=== PATIENT | male | born 1980 | race Caucasian/White ===

== ENCOUNTER 2018-06-19 11:02 | Emergency (ER) | payer BC ==
[2018-06-19] MEDS ORDERED: Lactated Ringers 1,000 ML IV ONE (11:30)
[2018-06-19] MEDS ORDERED: Ondansetron 4 MG/2 ML SDV IVPUSH ONE (11:30)
[2018-06-19] MEDS ORDERED: Sodium Chloride 0.9% 10 ML Syringe FLUSH PRN (11:30)
[2018-06-19] MEDS ORDERED: Famotidine 20 MG/2 ML SDV IVPUSH ONE (11:31)
--- NOTE | 2018-06-19 11:42 | EDM.PDOC ---
ED HPI GENERAL MEDICAL PROBLEM - General Chief Complaint: Abdominal Pain Stated Complaint: UPPER ABD PAIN AND VOMITING Time Seen by Provider: 06/19/18 11:20 Source of Information: Reports: Patient History Limitations: Reports: No Limitations - History of Present Illness INITIAL COMMENTS - FREE TEXT/NARRATIVE: 37 year old male presents for evaluation and treatment of abdominal pain, vomiting and diarrhea. Patient reports symptoms started gradually on Monday, about 3 days ago. Reports initially had a "gross" feeling in his stomach. Reports he has now developed nausea, vomiting and diarrhea. Reports anything he takes in he either vomits up or has diarrhea. He is reporting soreness to the Right upper abdomen with radiation into his back near his right shoulder blade. He reports his pain is a dull ache which he describes as feeling like he pulled a muscle. Reports over 10 episodes of diarrhea per day. States he has lost 13 pounds in the last few days. Reports he only had a small bite to eat this morning, last significant food intake was yesterday. Does not feel that he has much of an appetite and eating seems to worsen the pain. PCP is Dr. Smith. Only medication is lexapro. No previous abdominal surgeries. No ill contacts, questionable foods or recent travel. Upper Abdominal Pain Score (Numeric/FACES): 3 - Related Data Allergies Allergy/AdvReac Type Severity Reaction Status Date / Time No Known Allergies Allergy Verified 06/19/18 11:10 Home Meds: Home Meds Escitalopram [Lexapro] 10 mg PO DAILY 06/19/18 [History] Past Medical History - Past Health History Medical/Surgical History: Denies Medical/Surgical History Social & Family History - Tobacco Use Smoking Status *Q: Never Smoker ED ROS GENERAL - Review of Systems Review Of Systems: See Below Constitutional: Reports: Chills, Decreased Appetite, Weight Loss. Denies: Fever GI/Abdominal: Reports: Abdominal Pain (RUQ), Diarrhea, Nausea, Vomiting. Denies : Bloody Stool Musculoskeletal: Reports: Back Pain (right sided in between shoulder blad and spine) ED EXAM, GI/ABD - Physical Exam Exam: See Below Exam Limited By: No Limitations General Appearance: Alert, WD/WN, No Apparent Distress Throat/Mouth: Normal Inspection, Normal Voice, No Airway Compromise Respiratory/Chest: No Respiratory Distress, Lungs Clear, Normal Breath Sounds Cardiovascular: Normal Peripheral Pulses, Regular Rate, Rhythm, No Murmur GI/Abdominal Exam: Normal Bowel Sounds, Soft, Non-Tender, Other (negative yoo 's sign, no pain at mcburnies point) Neurological: Alert, Oriented, Normal Cognition Psychiatric: Normal Affect, Normal Mood Skin Exam: Warm, Dry, Normal Color Course - Vital Signs Last Recorded V/S: Last Vital Signs Temp 97.7 F 06/19/18 11:11 Pulse 67 06/19/18 11:11 Resp 16 06/19/18 11:11 BP 127/64 06/19/18 11:11 Pulse Ox 96 06/19/18 11:11 - Orders/Labs/Meds Labs: Laboratory Tests 06/19/18 06/19/18 06/19/18 Range/Units 11:35 11:35 11:35 WBC 5.35 (4.23-9.07) K/mm3 RBC 5.08 (4.63-6.08) M/mm3 Hgb 14.9 (13.7-17.5) gm/L Hct 42.9 (40.1-51.0) % MCV 84.4 (79.0-92.2) fl MCH 29.3 (25.7-32.2) pg MCHC 34.7 (32.2-35.5) g/dl RDW Std Deviation 38.4 (35.1-43.9) fL Plt Count 220 (163-337) K/mm3 MPV 9.9 (9.4-12.3) fl Neutrophils % (Manual) 60 (40-60) % Band Neutrophils % 0 (0-10) % Lymphocytes % (Manual) 31 (20-40) % Atypical Lymphs % 0 % Monocytes % (Manual) 5 (2-10) % Eosinophils % (Manual) 4 (0.8-7.0) % Basophils % (Manual) 0 L (0.2-1.2) Platelet Estimate Adequate Plt Morphology Comment Normal RBC Morph Comment Normal Sodium 142 (136-145) mEq/L Potassium 3.7 (3.5-5.1) mEq/L Chloride 105 (98-107) mEq/L Carbon Dioxide 26 (21-32) mEq/L Anion Gap 14.7 (5-15) BUN 16 (7-18) mg/dL Creatinine 1.0 (0.7-1.3) mg/dL Est Cr Clr Drug Dosing 113.19 mL/min Estimated GFR (MDRD) > 60 (>60) mL/min BUN/Creatinine Ratio 16.0 (14-18) Glucose 96 (74-106) mg/dL Calcium 9.0 (8.5-10.1) mg/dL Magnesium 2.2 (1.8-2.4) mg/dl Total Bilirubin 0.7 (0.2-1.0) mg/dL GGT 44 (15-85) U/L AST 47 H (15-37) U/L ALT 83 H (16-63) U/L Alkaline Phosphatase 99 (46-116) U/L C-Reactive Protein 2.4 H* (<1.0) mg/dL Total Protein 7.5 (6.4-8.2) g/dl Albumin 4.0 (3.4-5.0) g/dl Globulin 3.5 gm/dL Albumin/Globulin Ratio 1.1 (1-2) Lipase 105 (73-393) U/L Urine Color (Yellow) Urine Appearance (Clear) Urine pH (5.0-8.0) Ur Specific [place] (1.005-1.030) Urine Protein (Negative) Urine Glucose (UA) (Negative) Urine Ketones (Negative) Urine Occult Blood (Negative) Urine Nitrite (Negative) Urine Bilirubin (Negative) Urine Urobilinogen (0.2-1.0) Ur Leukocyte Esterase (Negative) Urine RBC (0-5) /hpf Urine WBC (0-5) /hpf Ur Epithelial Cells (0-5) /hpf Urine Bacteria (FEW) /hpf Urine Mucus (FEW) /hpf 06/19/18 Range/Units 12:24 WBC (4.23-9.07) K/mm3 RBC (4.63-6.08) M/mm3 Hgb (13.7-17.5) gm/L Hct (40.1-51.0) % MCV (79.0-92.2) fl MCH (25.7-32.2) pg MCHC (32.2-35.5) g/dl RDW Std Deviation (35.1-43.9) fL Plt Count (163-337) K/mm3 MPV (9.4-12.3) fl Neutrophils % (Manual) (40-60) % Band Neutrophils % (0-10) % Lymphocytes % (Manual) (20-40) % Atypical Lymphs % % Monocytes % (Manual) (2-10) % Eosinophils % (Manual) (0.8-7.0) % Basophils % (Manual) (0.2-1.2) Platelet Estimate Plt Morphology Comment RBC Morph Comment Sodium (136-145) mEq/L Potassium (3.5-5.1) mEq/L Chloride (98-107) mEq/L Carbon Dioxide (21-32) mEq/L Anion Gap (5-15) BUN (7-18) mg/dL Creatinine (0.7-1.3) mg/dL Est Cr Clr Drug Dosing mL/min Estimated GFR (MDRD) (>60) mL/min BUN/Creatinine Ratio (14-18) Glucose (74-106) mg/dL Calcium (8.5-10.1) mg/dL Magnesium (1.8-2.4) mg/dl Total Bilirubin (0.2-1.0) mg/dL GGT (15-85) U/L AST (15-37) U/L ALT (16-63) U/L Alkaline Phosphatase (46-116) U/L C-Reactive Protein (<1.0) mg/dL Total Protein (6.4-8.2) g/dl Albumin (3.4-5.0) g/dl Globulin gm/dL Albumin/Globulin Ratio (1-2) Lipase (73-393) U/L Urine Color Dark yellow (Yellow) Urine Appearance Clear (Clear) Urine pH 5.5 (5.0-8.0) Ur Specific [place] > or = 1.030 (1.005-1.030) Urine Protein Negative (Negative) Urine Glucose (UA) Negative (Negative) Urine Ketones Trace H (Negative) Urine Occult Blood Trace-lysed H (Negative) Urine Nitrite Negative (Negative) Urine Bilirubin 1+ H (Negative) Urine Urobilinogen 0.2 (0.2-1.0) Ur Leukocyte Esterase Negative (Negative) Urine RBC Not seen (0-5) /hpf Urine WBC 0-5 (0-5) /hpf Ur Epithelial Cells 0-5 (0-5) /hpf Urine Bacteria Few (FEW) /hpf Urine Mucus Moderate H (FEW) /hpf Meds: Medications Discontinued Medications Generic Name Dose Route Start Last Admin Trade Name Freq PRN Reason Stop Dose Admin Famotidine 20 mg 06/19/18 11:31 06/19/18 11:39 Pepcid IVPUSH 06/19/18 11:32 20 mg ONETIME ONE Administration Lactated Ringer's 1,000 mls @ 999 mls/hr 06/19/18 11:30 06/19/18 11:38 Ringers, Lactated IV 06/19/18 12:30 999 mls/hr .BOLUS ONE Administration Ketorolac Tromethamine 30 mg 06/19/18 12:28 06/19/18 12:32 Toradol IVPUSH 06/19/18 12:29 30 mg ONETIME ONE Administration Ondansetron HCl 4 mg 06/19/18 11:30 06/19/18 11:39 Zofran IVPUSH 06/19/18 11:31 4 mg ONETIME ONE Administration Sodium Chloride 10 ml 06/19/18 11:30 06/19/18 11:39 Saline Flush FLUSH 10 ml ASDIRECTED PRN Administration Keep Vein Open - Radiology Interpretation Free Text/Narrative:: Limited abdominal ultrasound: Multiple real-time images of the upper right abdomen were obtained. Comparison: No prior abdominal imaging. Technologist's note: Suboptimal images due to bowel gas Findings: Pancreas ancreas is incompletely seen. Visualized pancreas appears within normal limits. Liver not optimally seen. No discrete focal abnormality appreciated within the liver. Gallbladder contains no shadowing gallstones. No gallbladder wall thickening or biliary duct dilatation is seen. Right kidney shows no hydronephrosis or mass. Right kidney length is 12.1 cm. Inferior vena cava is patent. Portal vein shows normal hepatopedal flow. Impression: 1. Less than optimal study due to bowel gas. 2. No discrete abnormality appreciated within the liver. Other portions of the right upper quadrant abdominal ultrasound also shows no discrete abnormality. - Re-Assessments/Exams Free Text/Narrative Re-Assessment/Exam: 06/19/18 13:00 reviewed the labs with the patient. Given slighgtly elevated liver enzymes will obtain ultrasound to rule out acute cholecysitis. 06/19/18 15:00 Reviewed the labs and imaging with the patient. HE is feeling improved. Plan will be to discharge home with close follow-up if not much better. Recommendations given. Discharge instructions as documented. Departure - Departure Time of Disposition: 15:02 Disposition: Home, Self-Care 01 Condition: Fair Clinical Impression: Gastroenteritis - Discharge Information *PRESCRIPTION DRUG MONITORING PROGRAM REVIEWED*: No *COPY OF PRESCRIPTION DRUG MONITORING REPORT IN PATIENT CARLOS EDUARDO: No Instructions: Viral Gastroenteritis, Adult, [id number] Referrals: Bertrand Mann MD [Primary Care Provider] - Forms: ED Department Discharge Additional Instructions: Recommend clear fluids and a bland diet as tolerated. [place] diet recommendations include bread, rice, soup broth, etc. Recommend yogurt or a probiotic, these are available OTC. Follow-up with family med if not much better thurs or fri. zofran 1 tab sublingual every 6-8 hours prn nausea. Please return to the ER should your symptoms change or worsen.
[2018-06-19] MEDS ORDERED: Ketorolac 30 MG/ML SDV IVPUSH ONE (12:28)
--- NOTE | 2018-06-19 13:48 | US ---
Limited abdominal ultrasound: Multiple real-time images of the upper right abdomen were obtained. Comparison: No prior abdominal imaging. Technologist's note: Suboptimal images due to bowel gas Findings: Pancreas ancreas is incompletely seen. Visualized pancreas appears within normal limits. Liver not optimally seen. No discrete focal abnormality appreciated within the liver. Gallbladder contains no shadowing gallstones. No gallbladder wall thickening or biliary duct dilatation is seen. Right kidney shows no hydronephrosis or mass. Right kidney length is 12.1 cm. Inferior vena cava is patent. Portal vein shows normal hepatopedal flow. Impression: 1. Less than optimal study due to bowel gas. 2. No discrete abnormality appreciated within the liver. Other portions of the right upper quadrant abdominal ultrasound also shows no discrete abnormality. Diagnostic code #2
== END 2018-06-19 15:10 | disposition home or self-care (01) ==
LOC: JD.ED 11:02
DX: K52.9 Noninfective gastroenteritis and colitis, unspecified (principal); Z79.899 Other long term (current) drug therapy
CPT/HCPCS: 36415; 76705; 80053; 81001; 82977; 83690; 83735; 85007; 85027; 86140; 96361; 96374; 96375; 99284; J1885; J2405; J3490; J7120